=== PATIENT | male | born 1955 | race African-American/Black ===

== ENCOUNTER 2022-02-24 13:08 | Emergency (ER) | payer MEDICARE ==
[~2022-02-24] VITALS: Ht 180.3 cm; Wt 90.0 kg
[2022-02-24] MEDS ORDERED: KETOROLAC 30 MG/ML VIAL. IVP ONE (13:30)
[2022-02-24] MEDS ORDERED: IV NORMAL SALINE 1000ML BAG 1,000 ML IV SCH (13:30)
[2022-02-24] MEDS ORDERED: methylPREDNISolone SOD SUCC PF 125 MG/2 ML VIAL. IV ONE (13:30)
[2022-02-24 13:32] VITALS: BP 155/96
--- NOTE | 2022-02-24 13:33 | PHYS DOC ---
General Adult EDM: Chief Complaint: NECK PAIN HPI: HPI: Patient is a 67 year old male who presents with 5 days of a right large hard tender neck mass. He states that back in the he had the same kind of problem and had surgery but he does not know what it was or what it was for. Patient states he is having to spit out his saliva and he is having a hard time swallowing fluids and/or food. He denies shortness of breath, fever, abdominal pain, nausea, vomiting, diarrhea, chest pain. Rates his discomfort a 7 out of 10 tenderness pain. History of diabetes, high cholesterol and hypertension. Review of Systems: Review of Systems: Constitutional: Denies fever or chills. [] Eyes: Denies change in visual acuity. [] HENT: Denies nasal congestion or sore throat. +Right neck mass[] Respiratory: Denies cough or shortness of breath. [] Cardiovascular: Denies chest pain or edema. [] GI: Denies abdominal pain, nausea, vomiting, bloody stools or diarrhea. [] : Denies dysuria. [] Musculoskeletal: Denies back pain or joint pain. +Right neck pain[] Integument: Denies rash. [] Neurologic: Denies headache, focal weakness or sensory changes. [] Endocrine: Denies polyuria or polydipsia. [] Lymphatic: Denies swollen glands. [] Psychiatric: Denies depression or anxiety. [] Heart Score: C/O Chest Pain: No Current Medications: Current Medications Medications (Trade) Dose Ordered Sig/[facility] Start Time Stop Time Status Last Admin Dose Admin Ketorolac Tromethamine (Toradol 30mg Vial) 30 mg 1X ONCE 02/24/22 13:30 02/24/22 13:31 UNV Methylprednisolone Sodium Succinate (SOLU-Medrol 125MG VIAL) 125 mg 1X ONCE 02/24/22 13:30 02/24/22 13:31 UNV Sodium Chloride 1,000 ml @ 1,000 mls/hr Q1H 02/24/22 13:30 02/24/22 14:29 UNV Physical Exam: PE: Constitutional: Well developed, well nourished, no acute distress, non-toxic appearance. [] HENT: Normocephalic, atraumatic, bilateral external ears normal, oropharynx moist, no oral exudates, nose normal. [] Eyes: PERRLA, EOMI, conjunctiva normal, no discharge. [] Neck: Normal range of motion, no tenderness, supple, no stridor. Right neck kiwi sized, hard, tender mass[] Cardiovascular:Heart rate regular rhythm, no murmur [] Lungs & Thorax: Bilateral breath sounds clear to auscultation [] Abdomen: Bowel sounds normal, soft, no tenderness, no masses, no pulsatile masses. [] Skin: Warm, dry, no erythema, no rash. [] Back: No tenderness, no CVA tenderness. [] Extremities: No tenderness, no cyanosis, no clubbing, ROM intact, no edema. [] Neurologic: Alert and oriented X 3, normal motor function, normal sensory function, no focal deficits noted. [] Psychologic: Affect normal, judgement normal, mood normal. [] EKG: EKG: [] Radiology/Procedures: Radiology/Procedures: [] Impression: [facility] [address] [place], [place] [id number] IMAGING REPORT Signed PATIENT: VIVIANA COLES ACCOUNT: [id number] : 1955 LOCATION: ER AGE: 67 SEX: M EXAM STATUS: REG ER ORD. PHYSICIAN: HARRISON ESQUIVEL APRN REASON: large hard mass right neck PROCEDURE: CT SOFT TISSUE NECK W/CONTRAST EXAMINATION: CT NECK SOFT TISSUE WITH IV CONTRAST INDICATION:67 years, Male, large hard mass in the in the right neck. TECHNIQUE: Axial CT images of the neck was performed with administration of IV contrast. Coronal and sagittal reformats were obtained. One or more of the following dose reduction techniques were utilized: Automated exposure control (AEC), Adjustment of mA and/or kV according to patient size, Use of iterative reconstruction technique such as ASiR, CT scan done according to ALARA and image gently/image wisely COMPARISON: None. FINDINGS: There is a loculated rim-enhancing fluid collection in the right level 2A, deep to the sternocleidomastoid muscle measures approximately 4.0 x 2.0 cm. No lymphadenopathy by size criteria. The parotid, submandibular, and thyroid glands are normal. The muscles of the neck are unremarkable. Vessels of the neck demonstrate normal course, caliber, and enhancement. The visualized aerodigestive tract is normal. The visualized posterior fossa and brain is unremarkable. The visualized orbits and paranasal sinuses are normal. The cervical spine demonstrates multilevel degenerative changes. The visualized lung apices are clear. IMPRESSION: Loculated rim-enhancing 4.0 x 2.0 cm fluid collection in the right level 2A region deep to the sternocleidomastoid muscle. Differential includes abscess versus necrotic lymphadenopathy of unknown primary. Clinical correlation is advised. Electronically signed by: Álvaro Larry MD (02/24/2022 3:18 PM) [facility] DICTATED and SIGNED BY: ÁLVARO LARRY MD DATE: 02/24/22 1511 Course & Med Decision Making: Course & Med Decision Making Pertinent Labs and Imaging studies reviewed. (See chart for details) See HPI. Alert and oriented x4. Ambulatory with a steady gait. Speaks in full clear sentences. Skin pink warm and dry. He is afebrile. Uvula midline. No trismus. I do not see any swelling in the back of the throat. He has a right neck very large Kiwi sized hard mass that is tender with palpation. No respiratory distress. Patient is currently spitting out his saliva because he is having a hard time getting the saliva down. CT shows a large mass that needs to be drained. His blood work is unremarkable. Patient will need to be transferred to another facility and I have spoken with the patient about this and importance of being transported. I spoke to Halie Lambert nurse practitioner that is with the hospitalist group at [facility]. And I then spoke to Dr. Morris the ENT physician. He states to get the patient Unasyn 3 g and to keep him n.p.o. as is likely will need to be drained this evening. Accepting physician is Dr. Beth. [] Juanita Disclaimer: Juanita Disclaimer: This electronic medical record was generated, in whole or in part, using a voice recognition dictation system. Departure Departure Impression: Primary Impression: Abscess of muscle of neck Disposition: 02 [facility] Condition: STABLE SIERRADARIELBhavna Ramirez MICRO COMPUTER SPECIALIST February 24, 2022 13:33
[2022-02-24 13:37] LABS: BASO % 1 % (0-3); EOS # 0.1 x10^3/uL (0.0-0.7); EOS % 1 % (0-3); HEMATOCRIT 41.6 % (39.0-53.0); HEMOGLOBIN 13.7 g/dL (13.0-17.5); LYMPH # 0.5 x10^3/uL (1.0-4.8); LYMPH % 9 % (24-48); MEAN CORPUSCULAR HEMOGLOBIN 29 pg (25-35); MEAN CORPUSCULAR HGB CONC 33 g/dL (31-37); MEAN CORPUSCULAR VOLUME 88 fL (79-100); MONO # 0.6 x10^3/uL (0.0-1.1); MONO % 9 % (0-9); NEUT # 5.1 x10^3/uL (1.8-7.7); NEUT % 81 % (31-73); PLATELET COUNT 237 x10^3/uL (140-400); RED BLOOD COUNT 4.74 x10^6/uL (4.30-5.70); WHITE BLOOD COUNT 6.3 x10^3/uL (4.0-11.0)
[2022-02-24 14:23] LABS: CALCIUM 8.8 mg/dL (8.5-10.1); GFR 90.5; POTASSIUM 4.1 mmol/L (3.5-5.1)
[2022-02-24 14:29] LABS: ALBUMIN 3.2 g/dL (3.4-5.0); ALBUMIN/GLOBULIN RATIO 0.8 (1.0-1.7); TOTAL BILIRUBIN 0.8 mg/dL (0.2-1.0); TOTAL PROTEIN 7.3 g/dL (6.4-8.2)
[2022-02-24] MEDS ORDERED: IOHEXOL 300 MG/ML 100ML VIAL. IV ONE (14:30)
[2022-02-24] MEDS ORDERED: CONTRAST GIVEN. MC PRN (14:45)
--- NOTE | 2022-02-24 15:20 | RAD ---
EXAMINATION: CT NECK SOFT TISSUE WITH IV CONTRAST INDICATION:67 years, Male, large hard mass in the in the right neck. TECHNIQUE: Axial CT images of the neck was performed with administration of IV contrast. Coronal and sagittal reformats were obtained. One or more of the following dose reduction techniques were utilize d: Automated exposure control (AEC), Adjustment of mA and/or kV according to patient size, Use of it erative reconstruction technique such as ASiR, CT scan done according to ALARA and image gently/image wisely COMPARISON: None. FINDINGS: There is a loculated rim-enhancing fluid collection in the right level 2A, deep to the sternocleidoma stoid muscle measures approximately 4.0 x 2.0 cm. No lymphadenopathy by size criteria. The parotid, s ubmandibular, and thyroid glands are normal. The muscles of the neck are unremarkable. Vessels of the neck demonstrate normal course, caliber, and enhancement. The visualized aerodigestive tract is norm al. The visualized posterior fossa and brain is unremarkable. The visualized orbits and paranasal sinuses are normal. The cervical spine demonstrates multilevel degenerative changes. The visualized lung apices are clear. IMPRESSION: Loculated rim-enhancing 4.0 x 2.0 cm fluid collection in the right level 2A region deep to the sterno cleidomastoid muscle. Differential includes abscess versus necrotic lymphadenopathy of unknown primar y. Clinical correlation is advised. Electronically signed by: Josias Larry MD (02/24/2022 3:18 PM) [facility]
[2022-02-24] MEDS ORDERED: AMPICILLIN/SULBACTAM 3 GM in IV NORMAL SALINE 100ML 100 ML IV ONE (18:00)
== END 2022-02-24 18:56 | disposition short-term general hospital (02) ==
LOC: ER 13:08
DX: L02.11 Cutaneous abscess of neck (principal)
CPT/HCPCS: 36415; 70491; 80053; 85025; 87070; 87426; 87880; 96361; 96365; 96375; 99285; J0295; J1885; J2930; J7030; Q9967